=== PATIENT | female | born 1960 | race Caucasian/White ===

== ENCOUNTER → 2016-06-27 | Outpatient (CLI) | payer OTHER ==
[~2016-06-27] MED LIST: ALLEGRA ALLERG180 MG PO; CLINDAMYCIN HC300 MG PO; COREG 25MG TAB25 MG PO; DITROPAN 5 MG TA5 MG PO; FISH OIL300 MG PO; LISINOPRIL20 MG PO; LORTAB 7.5-3251 EACH PO; NEURONTIN 400400 MG PO; NORVASC 5 MG TAB5 MG PO; SYNTHROID50 MCG PO; ZANAFLEX4 M1 PO; ZANTAC300 MG PO
[2016-06-27 06:43] LABS: HEMOGLOBIN 14.4 gm/dl (12.3-15.3); RED BLOOD COUNT 4.81 M/UL (4.00-5.10); WHITE BLOOD COUNT 9.3 K/UL (4.5-11.0)
[2016-06-27 06:57] LABS: BUN/CREATININE RATIO 17 (0-10)
== END ==
LOC: LAB 06:07
PROVIDERS: Nurse Practitioner Primary Care
DX: M70.52 Other bursitis of knee, left knee (principal); I10 Essential (primary) hypertension; E78.5 Hyperlipidemia, unspecified; E03.9 Hypothyroidism, unspecified; R52 Pain, unspecified; M54.10 Radiculopathy, site unspecified; N39.3 Stress incontinence (female) (male); R73.9 Hyperglycemia, unspecified; Z88.1 Allergy status to other antibiotic agents; Z88.0 Allergy status to penicillin
CPT/HCPCS: 36415; 80053; 80061; 80307; 81001; 84443; 85025

== ENCOUNTER → 2021-01-30 | Outpatient (CLI) | payer MEDICARE ==
[~2021-01-30] VITALS: Ht 162.6 cm; Wt 127.0 kg
== END ==
LOC: OPSV 01-23 11:00
DX: G89.29 Other chronic pain (principal); M54.9 Dorsalgia, unspecified; E55.9 Vitamin D deficiency, unspecified; M79.605 Pain in left leg; E11.9 Type 2 diabetes mellitus without complications; E78.5 Hyperlipidemia, unspecified; M81.0 Age-related osteoporosis without current pathological fracture
CPT/HCPCS: 96372; J3111

== ENCOUNTER → 2021-03-01 | Outpatient (CLI) | payer MEDICARE ==
[~2021-03-01] VITALS: Ht 162.6 cm; Wt 127.0 kg
== END ==
LOC: OPSV 10:00
DX: M81.0 Age-related osteoporosis without current pathological fracture (principal); G89.29 Other chronic pain; E55.9 Vitamin D deficiency, unspecified; M79.605 Pain in left leg; E11.9 Type 2 diabetes mellitus without complications; E78.5 Hyperlipidemia, unspecified
CPT/HCPCS: 96372; J3111